=== PATIENT | female | born 1930 | race American Indian/Alaskan Native ===

== ENCOUNTER 2017-05-01 13:20 | Outpatient (CLI) | payer MEDICARE ==
[2017-05-01] MEDS ORDERED: XYLOCAINE TOPICAL 4% TP ONE ×2 (13:49→13:54)
== END 2017-05-01 13:21 | disposition home or self-care (01) ==
LOC: WOUND 13:20
PROVIDERS: ATTEND Podiatrist
DX: E11.621 Type 2 diabetes mellitus with foot ulcer (principal); L97.812 Non-pressure chronic ulcer of other part of right lower leg with fat layer exposed; E46 Unspecified protein-calorie malnutrition; I25.10 Atherosclerotic heart disease of native coronary artery without angina pectoris; I10 Essential (primary) hypertension; F17.200 Nicotine dependence, unspecified, uncomplicated
CPT/HCPCS: 87075; 87116; 97597; G0463

== ENCOUNTER 2017-05-08 10:06 | Outpatient (CLI) | payer MEDICARE ==
[2017-05-08] MEDS ORDERED: XYLOCAINE TOPICAL 4% TP ONE (10:53)
[2017-05-08] MEDS ORDERED: NACL 0.9% 500 ML IR ONE (11:03)
[2017-05-08] MEDS ORDERED: NACL 0.9% IR PRN (11:04)
== END 2017-05-08 10:07 | disposition home or self-care (01) ==
LOC: WOUND 10:06
PROVIDERS: ATTEND Podiatrist
DX: E11.622 Type 2 diabetes mellitus with other skin ulcer (principal); L97.812 Non-pressure chronic ulcer of other part of right lower leg with fat layer exposed; E46 Unspecified protein-calorie malnutrition; C67.9 Malignant neoplasm of bladder, unspecified; I25.10 Atherosclerotic heart disease of native coronary artery without angina pectoris; F17.200 Nicotine dependence, unspecified, uncomplicated

== ENCOUNTER 2017-05-15 10:55 | Outpatient (CLI) | payer MEDICARE ==
[2017-05-15] MEDS ORDERED: XYLOCAINE TOPICAL 4% TP ONE (11:07)
== END 2017-05-15 10:56 | disposition home or self-care (01) ==
LOC: WOUND 10:55
PROVIDERS: ATTEND Podiatrist
DX: E11.622 Type 2 diabetes mellitus with other skin ulcer (principal); L97.812 Non-pressure chronic ulcer of other part of right lower leg with fat layer exposed; E46 Unspecified protein-calorie malnutrition; I25.10 Atherosclerotic heart disease of native coronary artery without angina pectoris; F17.200 Nicotine dependence, unspecified, uncomplicated; Z85.51 Personal history of malignant neoplasm of bladder

== ENCOUNTER 2017-05-22 13:08 | Outpatient (CLI) | payer MEDICARE ==
[2017-05-22] MEDS ORDERED: XYLOCAINE TOPICAL 4% TP ONE ×2 (13:31→13:39)
[2017-05-22] MEDS ORDERED: XYLOCAINE TOPICAL 2% TP ONE (13:32)
[2017-05-22] MEDS ORDERED: XYLOCAINE TOPICAL 2% ONE (13:38)
== END 2017-05-22 13:09 | disposition home or self-care (01) ==
LOC: WOUND 13:08
PROVIDERS: ATTEND Podiatrist
DX: E11.622 Type 2 diabetes mellitus with other skin ulcer (principal); L97.812 Non-pressure chronic ulcer of other part of right lower leg with fat layer exposed; E11.51 Type 2 diabetes mellitus with diabetic peripheral angiopathy without gangrene; E46 Unspecified protein-calorie malnutrition; I25.10 Atherosclerotic heart disease of native coronary artery without angina pectoris; I10 Essential (primary) hypertension; F17.200 Nicotine dependence, unspecified, uncomplicated; Z85.51 Personal history of malignant neoplasm of bladder

== ENCOUNTER 2017-05-29 10:18 | Outpatient (CLI) | payer MEDICARE ==
[2017-05-29] MEDS ORDERED: XYLOCAINE TOPICAL 4% TP ONE (11:04)
== END 2017-05-29 10:19 | disposition home or self-care (01) ==
LOC: WOUND 10:18
PROVIDERS: ATTEND Podiatrist
DX: E11.622 Type 2 diabetes mellitus with other skin ulcer (principal); L97.812 Non-pressure chronic ulcer of other part of right lower leg with fat layer exposed; E11.51 Type 2 diabetes mellitus with diabetic peripheral angiopathy without gangrene; E46 Unspecified protein-calorie malnutrition; I25.10 Atherosclerotic heart disease of native coronary artery without angina pectoris; F17.200 Nicotine dependence, unspecified, uncomplicated; Z85.118 Personal history of other malignant neoplasm of bronchus and lung

== ENCOUNTER 2017-06-05 10:09 | Outpatient (CLI) | payer MEDICARE ==
[2017-06-05] MEDS ORDERED: XYLOCAINE TOPICAL 4% TP ONE ×2 (10:42)
== END 2017-06-05 10:10 | disposition home or self-care (01) ==
LOC: WOUND 10:09
PROVIDERS: ATTEND Podiatrist
DX: E11.622 Type 2 diabetes mellitus with other skin ulcer (principal); L97.812 Non-pressure chronic ulcer of other part of right lower leg with fat layer exposed; E11.51 Type 2 diabetes mellitus with diabetic peripheral angiopathy without gangrene; E46 Unspecified protein-calorie malnutrition; I25.10 Atherosclerotic heart disease of native coronary artery without angina pectoris; F17.200 Nicotine dependence, unspecified, uncomplicated; Z85.51 Personal history of malignant neoplasm of bladder

== ENCOUNTER 2017-08-14 10:46 | Outpatient (CLI) | payer MEDICARE ==
[2017-08-14] MEDS ORDERED: XYLOCAINE TOPICAL 4% TP ONE ×2 (11:11→14:30)
== END 2017-08-14 10:47 | disposition home or self-care (01) ==
LOC: WOUND 10:46
PROVIDERS: ATTEND Podiatrist
DX: E11.622 Type 2 diabetes mellitus with other skin ulcer (principal); L97.812 Non-pressure chronic ulcer of other part of right lower leg with fat layer exposed; E11.51 Type 2 diabetes mellitus with diabetic peripheral angiopathy without gangrene; E46 Unspecified protein-calorie malnutrition; I25.10 Atherosclerotic heart disease of native coronary artery without angina pectoris; I10 Essential (primary) hypertension; F17.200 Nicotine dependence, unspecified, uncomplicated; Z85.9 Personal history of malignant neoplasm, unspecified; Z98.49 Cataract extraction status, unspecified eye
CPT/HCPCS: 11042; G0463